=== PATIENT | female | born 1960 | race Caucasian/White ===

== ENCOUNTER 2017-03-05 13:24 | Emergency (ER) | payer OTHER ==
[~2017-03-05] VITALS: Ht 160 cm; Wt 114.0 kg
[~2017-03-05 13:24] MED LIST: ADVAI100I PO; ALBU8I INH; DIAB1.25 PO; GLUCTAB PO; LEVO100T4 PO; MAXZ OR; METO10TA PO; METO25 PO; OMEP20TA39 PO; SIMV40TA PO; THEO1CAP6 PO
[2017-03-05 13:31] VITALS: BP 172/92; PULSE 85; RESP 18; TEMP 97.4; O2SAT 98
[2017-03-05] MEDS ORDERED: THEO300T30 PO (13:48)
[2017-03-05] MEDS ORDERED: METO25TA3 PO (13:48)
[2017-03-05] MEDS ORDERED: FLUT1SPR5 EACH NARE (13:48)
[2017-03-05] MEDS ORDERED: MECL-62 PO (13:48)
[2017-03-05] MEDS ORDERED: LEVO100T5 PO (13:48)
[2017-03-05] MEDS ORDERED: ZOFR8TAB PO (13:48)
[2017-03-05] MEDS ORDERED: ZYRT10TA PO (13:48)
[2017-03-05] MEDS ORDERED: GLIM2TAB PO (13:48)
[2017-03-05] MEDS ORDERED: DEXI60CA PO (13:48)
[2017-03-05] MEDS ORDERED: METF850T PO (13:48)
[2017-03-05] MEDS ORDERED: BETH25TA2 PO (13:48)
[2017-03-05] MEDS ORDERED: VENTAER INH (13:49)
[2017-03-05] MEDS ORDERED: ADVA250A INH (13:49)
[2017-03-05] MEDS ORDERED: SODIUM CHLORIDE 0.9% FLUSH 10 ML FLUSH IVF PRN (14:15)
[2017-03-05 14:22] VITALS: O2SAT 98
[2017-03-05 14:30] LABS: AUTOMATED NEUTROPHIL # 7.6 TH/MM3 (1.8-7.7); BASOPHIL % 0.4 % (0.0-2.0); EOSINOPHIL # 0.4 TH/MM3 (0-0.4); EOSINOPHIL % 3.6 % (0.0-4.0); HEMATOCRIT 35.2 % (35.0-46.0); LYMPH % 21.8 % (9.0-44.0); LYMPHOCYTE # 2.3 TH/MM3 (1.0-4.8); MEAN CELL VOLUME 90.3 FL (80.0-100.0); MEAN CORPUSCULAR HEMOGLOBIN 29.3 PG (27.0-34.0); MEAN CORPUSCULAR HGB CONC 32.4 % (32.0-36.0); MONO % 3.2 % (0.0-8.0); PLATELET COUNT 228 TH/MM3 (150-450); RED CELL DISTRIBUTION WIDTH 13.9 % (11.6-17.2); WHITE BLOOD COUNT 10.6 TH/MM3 (4.0-11.0)
--- NOTE | 2017-03-05 14:32 | PD ---
HPI . Nausea and shortness of breath Chief Complaint: Respiratory Symptoms Time Seen by Provider: 13:57 Travel History International Travel<30 days: No Contact w/Intl Traveler<30days: No Traveled to known affect area: No History of Present Illness HPI Patient presents complaining with nausea and shortness of breath. She states that it has been getting progressively worse all week. She states that it all started when she was placed on a new GI medication called bethanechol. She states that she consulted with her pharmacist her that she should not be taking this medication with her history of COPD and hypertension. Patient reports that she was placed on the medication because of gastroparesis. She reports that her symptoms are severe. She believes that her symptoms are exacerbated by bethanechol. She reports no relieving factors. PFSH Past Medical History Asthma: Yes Anxiety: Yes Depression: Yes High Cholesterol: Yes COPD: Yes Diabetes: Yes Patient Takes Glucophage: Yes Diminished Hearing: No Gastrointestinal Disorders: Yes (gastroparesis) Immunizations Current: No Thyroid Disease: Yes Menopausal: Yes Ectopic : Yes Tubal Ligation: Yes Past Surgical History Abdominal Surgery: Yes (HERNIA ) Social History Alcohol Use: No Tobacco Use: No Substance Use: No Allergies-Medications (Allergen,Severity, Reaction): Coded Allergies: Aspirin (Verified Allergy, Severe, 06/24/14) Erythromycins (Verified Allergy, Severe, 06/24/14) Lactose (Verified Allergy, Severe, 06/24/14) Phenobarbital (Verified Allergy, Severe, 06/24/14) Seafood (Verified Allergy, Severe, 06/24/14) Reported Meds & Prescriptions Reported Meds & Active Scripts Active Reported Ventolin Hfa 18 GM Inh (Albuterol Sulfate) 90 Mcg/Act Aer 2 Puff INH Q4H PRN Advair Diskus Inh (Fluticasone-Salmeterol Inh) 250-50 Mcg/Blist Aer 1 Puff INH BID Rinse mouth after use. Zyrtec Allergy (Cetirizine HCl) 10 Mg Tab 10 Mg PO DAILY Metoprolol Tartrate 25 Mg Tab 25 Mg PO DAILY Glimepiride 2 Mg Tab 2 Mg PO DAILY Take with breakfast or first main meal Zofran (Ondansetron HCl) 8 Mg Tab 8 Mg PO TID PRN Bethanechol 25 Mg Tab 12.5 Mg PO QID Levothyroxine (Levothyroxine Sodium) 100 Mcg Tab 100 Mcg PO DAILY Meclizine (Meclizine HCl) 25 Mg Tab 25 Mg PO DIRECTED PRN Theophylline ER 12 HR (Theophylline) 300 Mg Tab 300 Mg PO Q12H Dexilant (Dexlansoprazole) 60 Mg Cap 60 Mg PO DAILY Metformin (Metformin HCl) 850 Mg Tab 850 Mg PO BIDPC With meals Flonase Nasal [place] (Fluticasone Nasal [place]) 50 Mcg/Act [place] 100 Mcg EACH NARE BID Review of Systems Except as stated in HPI: all other systems reviewed are Neg General / Constitutional: No: Fever, Chills Eyes: No: Blurred Vision HENT: No: Headaches Cardiovascular: No: Chest Pain or Discomfort Respiratory: Positive: Shortness of Breath Gastrointestinal: Positive: Nausea, Abdominal Pain, No: Vomiting, Diarrhea Physical Exam Narrative GENERAL: Awake and alert and in no acute distress. SKIN: Warm and dry. HEAD: Atraumatic. Normocephalic. EYES: Pupils equal and round. Extraocular movements are intact. ENT: No nasal bleeding or discharge. Mucous membranes pink and moist. NECK: Trachea midline. Neck is supple. CARDIOVASCULAR: Regular rate and rhythm. Heart sounds are normal. RESPIRATORY: No accessory muscle use. Lungs are clear with full air movement throughout. GASTROINTESTINAL: Abdomen soft. Generalized tenderness. Nondistended. Normal bowel sounds. MUSCULOSKELETAL: No obvious deformities. No edema. NEUROLOGICAL: Awake and alert. No obvious cranial nerve deficits. Motor grossly within normal limits. Normal speech. PSYCHIATRIC: Flat affect; insight and judgment normal. Data Data Last Documented VS Vital Signs Date Time Temp Pulse Resp B/P Pulse Ox O2 Delivery O2 Flow Rate FiO2 03/05/17 14:31 98 Room Air 03/05/17 13:31 97.4 85 18 172/92 Orders Complete Blood Count With Diff (03/05/17 14:08) Basic Metabolic Panel (Bmp) (03/05/17 14:08) Iv Access Insert/Monitor (03/05/17 14:08) Ecg Monitoring (03/05/17 14:08) Oximetry (03/05/17 14:08) Oxygen Administration (03/05/17 14:08) Chest, Single Ap (03/05/17 14:08) Sodium Chloride 0.9% Flush (Ns Flush) (03/05/17 14:15) Labs Laboratory Tests Test 03/05/17 14:14 White Blood Count 10.6 TH/MM3 Red Blood Count 3.90 MIL/MM3 Hemoglobin 11.4 GM/DL Hematocrit 35.2 % Mean Corpuscular Volume 90.3 FL Mean Corpuscular Hemoglobin 29.3 PG Mean Corpuscular Hemoglobin 32.4 % Concent Red Cell Distribution Width 13.9 % Platelet Count 228 TH/MM3 Mean Platelet Volume 8.2 FL Neutrophils (%) (Auto) 71.0 % Lymphocytes (%) (Auto) 21.8 % Monocytes (%) (Auto) 3.2 % Eosinophils (%) (Auto) 3.6 % Basophils (%) (Auto) 0.4 % Neutrophils # (Auto) 7.6 TH/MM3 Lymphocytes # (Auto) 2.3 TH/MM3 Monocytes # (Auto) 0.3 TH/MM3 Eosinophils # (Auto) 0.4 TH/MM3 Basophils # (Auto) 0.0 TH/MM3 CBC Comment DIFF FINAL Differential Comment Sodium Level 141 MEQ/L Potassium Level 4.6 MEQ/L Chloride Level 110 MEQ/L Carbon Dioxide Level 21.2 MEQ/L Anion Gap 10 MEQ/L Blood Urea Nitrogen 15 MG/DL Creatinine 1.40 MG/DL Estimat Glomerular Filtration 39 ML/MIN Rate Random Glucose 147 MG/DL Calcium Level 8.2 MG/DL [facility] Medical Decision Making Medical Screen Exam Complete: Yes Emergency Medical Condition: Yes Medical Record Reviewed: Yes (her medical problems include DTs, obesity, hypertension, hyperlipidemia, thalassemia, COPD, schizoaffective disorder, personality disorder) Differential Diagnosis Differential diagnosis includes but is not limited to viral gastroenteritis, food poisoning, bowel obstruction, UTI Narrative Course Patient presents stating that she is nauseous and short of breath and being placed on bethanechol. The patient is able to speak in complete sentences without any apparent respiratory distress. Her lungs are clear. Her oxygen saturation is 98% on room air. Her respiratory rate is 18. CBC & BMP Diagram 03/05/17 14:14 Last Impressions Chest X-Ray 03/05/17 1408 Signed Impressions: Service Date/Time: Wednesday, March 05, 2017 14:12 - CONCLUSION: 1. Limited exam because of the patient's large body habitus. 2. Underaerated without overt consolidation or congestive failure. David Seo MD FACR Diagnosis Primary Impression: Dyspnea Qualified Code: R06.00 - Dyspnea, unspecified type Additional Impression: Nausea Additional Instructions: Stop bethanechol. Check with your GI doctor regarding and alternate treatment. Disposition: 01 DISCHARGE HOME Condition: Stable Enma Chong MD Mar 05, 2017 14:32
[2017-03-05 14:47] LABS: POTASSIUM 4.6 MEQ/L (3.5-5.1)
[2017-03-05 14:51] LABS: BICARBONATE 21.2 MEQ/L (21.0-32.0)
--- NOTE | 2017-03-05 14:58 | RADHPO ---
EXAM DATE/TIME: 03/05/2017 14:12 [facility] COMPARISON: No previous studies available for comparison. INDICATIONS : Short of breath. MEDICAL HISTORY : Hypercholesterolemia. Gastroparesis. Chronic obstructive pulmonary disease. Thyroid disease. Asth ma. Wheezing. Diabetes SURGICAL HISTORY : Tubal ligation. Hernia repair. ENCOUNTER: Initial ACUITY: 3 days PAIN SCORE: 0/10 LOCATION: Chest FINDINGS: Lungs are underaerated. Pulmonary vascularity is normal. Minimal parenchymal changes are present in the left base. Degenerative change is seen about both shoulders. CONCLUSION: 1. Limited exam because of the patient's large body habitus. 2. Underaerated without overt consolidation or congestive failure. David Seo MD FACR on March 05, 2017 at 14:55 Board Certified Radiologist. This report was verified electronically.
[2017-03-05 15:00] LABS: HEMO FLAGS DIFF FINAL
[2017-03-05 16:16] VITALS: BP 168/88
== END 2017-03-05 16:19 | disposition home or self-care (01) ==
LOC: PHED 13:24
DX: R06.00 Dyspnea, unspecified (principal); R11.0 Nausea; J44.9 Chronic obstructive pulmonary disease, unspecified; I10 Essential (primary) hypertension; K31.84 Gastroparesis; J45.909 Unspecified asthma, uncomplicated; E78.00 Pure hypercholesterolemia, unspecified; E11.9 Type 2 diabetes mellitus without complications; E07.9 Disorder of thyroid, unspecified
CPT/HCPCS: 71010; 80048; 85025; 99285

== ENCOUNTER 2017-09-28 09:41 | Emergency (ER) | payer OTHER ==
[~2017-09-28 09:41] MED LIST changes: +ADVA250A INH; -ADVAI100I PO; -ALBU8I INH; +BETH25TA2 PO; +DEXI60CA PO; -DIAB1.25 PO; +FLUT1SPR5 EACH NARE; +GLIM2TAB PO; -GLUCTAB PO; -LEVO100T4 PO; +LEVO100T5 PO; -MAXZ OR; +MECL-62 PO; +METF850T PO; -METO10TA PO; -METO25 PO; +METO25TA3 PO; -OMEP20TA39 PO; -SIMV40TA PO; -THEO1CAP6 PO; +THEO300T12 PO; +VENTAER INH; +ZOFR8TAB PO; +ZYRT10TA PO
[2017-09-28 09:45] VITALS: BP 187/84; PULSE 79; RESP 15; TEMP 97.9; O2SAT 98
[2017-09-28] MEDS ORDERED: SODIUM CHLOR 0.9% 1000 ML INJ 1,000 ML IV SCH (09:59)
[2017-09-28] MEDS ORDERED: ONDANSETRON HCL 4 MG/2 ML VIAL IVP ONE (10:00)
[2017-09-28] MEDS ORDERED: MORPHINE SULFATE 4 MG/ML INJ IV PUSH ONE (10:00)
[2017-09-28] MEDS ORDERED: SODIUM CHLORIDE 0.9% FLUSH 10 ML FLUSH IV FLUSH PRN (10:00)
--- NOTE | 2017-09-28 10:06 | PD ---
HPI Chief Complaint: GI Complaint Time Seen by Provider: 09:52 Travel History International Travel<30 days: No Contact w/Intl Traveler<30days: No Traveled to known affect area: No History of Present Illness HPI 56yo F with hernia repair 08/28/17, gastroparesis presents to the ED with c/o abdominal pain, vomiting and nonbloody diarrhea today. Said pain is mainly epigastric, sharp, nonradiating and intermittent. Denies any fever, chest pain , sob, focal weakness or numbness. Also complains of increased urinary frequency. PFSH Past Medical History Asthma: Yes Anxiety: Yes Depression: Yes High Cholesterol: Yes COPD: Yes Diabetes: Yes Diminished Hearing: No Gastrointestinal Disorders: Yes (gastroparesis) Immunizations Current: No Thyroid Disease: Yes Menopausal: Yes Ectopic : Yes Tubal Ligation: Yes Past Surgical History Abdominal Surgery: Yes (HERNIA ) Social History Alcohol Use: No Tobacco Use: No Substance Use: No Allergies-Medications (Allergen,Severity, Reaction): Coded Allergies: Fish Containing Products (Unverified Allergy, Severe, 09/28/17) aspirin (Unverified Allergy, Severe, 09/28/17) azithromycin (Unverified Allergy, Severe, 09/28/17) erythromycin base (Unverified Allergy, Severe, 09/28/17) lactose (Unverified Allergy, Severe, 09/28/17) phenobarbital (Unverified Allergy, Severe, 09/28/17) Reported Meds & Prescriptions Reported Meds & Active Scripts Active Tylenol (Acetaminophen) 325 Mg Tab 650 Mg PO Q6H PRN Reported Iron (Ferrous Sulfate) 325 Mg Cap 325 Mg PO DAILY Caltrate 600+D Chew (Calcium Carbonate-Vitamin D Chew) 600-400 Mg-Unit Chew 1 Tab PO BID Vitamin D-1000 (Cholecalciferol) 1,000 Unit Tab 1,000 Units PO BID Imodium A-D (Loperamide HCl) 2 Mg Capsule 2 Mg PO Q6H PRN Clonazepam 1 Mg Tab 1 Mg PO TID Fluoxetine (Fluoxetine HCl) 20 Mg Capsule 20 Mg PO DAILY Topiramate 50 Mg Tab 50 Mg PO BID Quetiapine (Quetiapine Fumarate) 100 Mg Tab 100 Mg PO HS Simvastatin 40 Mg Tab 40 Mg PO HS Reglan (Metoclopramide HCl) 5 Mg Tab 5 Mg PO BID Fenofibrate 160 Mg Tab 160 Mg PO DAILY Omeprazole 20 Mg Tab 20 Mg PO DAILY Ventolin Hfa 18 GM Inh (Albuterol Sulfate) 90 Mcg/Act Aer 2 Puff INH Q4H PRN Advair Diskus Inh (Fluticasone-Salmeterol Inh) 250-50 Mcg/Blist Aer 1 Puff INH BID Rinse mouth after use. Zyrtec Allergy (Cetirizine HCl) 10 Mg Tab 10 Mg PO DAILY Metoprolol Tartrate 25 Mg Tab 25 Mg PO DAILY Glimepiride 2 Mg Tab 2 Mg PO DAILY Take with breakfast or first main meal Zofran (Ondansetron HCl) 8 Mg Tab 8 Mg PO TID PRN Levothyroxine (Levothyroxine Sodium) 100 Mcg Tab 100 Mcg PO DAILY Meclizine (Meclizine HCl) 25 Mg Tab 25 Mg PO DIRECTED PRN Theophylline ER 12 HR (Theophylline) 300 Mg Tab 300 Mg PO Q12H Metformin (Metformin HCl) 850 Mg Tab 850 Mg PO BIDPC With meals Review of Systems Except as stated in HPI: all other systems reviewed are Neg Physical Exam Narrative GENERAL: 56yo F not in distress. SKIN: Focused skin assessment warm/dry. HEAD: Atraumatic. Normocephalic. EYES: Pupils equal and round. No scleral icterus. No injection or drainage. ENT: No nasal bleeding or discharge. Mucous membranes pink and moist. NECK: Trachea midline. No JVD. CARDIOVASCULAR: Regular rate and rhythm. No murmur appreciated. RESPIRATORY: No accessory muscle use. Clear to auscultation. Breath sounds equal bilaterally. GASTROINTESTINAL: Abdomen soft, +TTP epigastric, RUQ, periumbilical left of umbilicus. Morbidly obese abdomen. Midline incision site looks well healed with no erythema, purulent discharge or edema. Tender to palpation around the incision. There is some erythema under the pannis. MUSCULOSKELETAL: No obvious deformities. No clubbing. No cyanosis. No edema. NEUROLOGICAL: Awake and alert. No obvious cranial nerve deficits. Motor grossly within normal limits. Normal speech. PSYCHIATRIC: Appropriate mood and affect; insight and judgment normal. Data Data Last Documented VS Vital Signs Date Time Temp Pulse Resp B/P (MAP) Pulse Ox O2 Delivery O2 Flow Rate FiO2 09/28/17 13:51 09/28/17 12:30 77 18 97 09/28/17 10:10 Room Air 09/28/17 09:45 97.9 Orders Orders Complete Blood Count With Diff (09/28/17 09:59) Comprehensive Metabolic Panel (09/28/17 09:59) Lipase (09/28/17 09:59) Prothrombin Time / Inr (Pt) (09/28/17 09:59) Act Partial Throm Time (Ptt) (09/28/17 09:59) Urinalysis - C+S If Indicated (09/28/17 09:59) Ct Abd/Pel W Iv Contrast(Rout) (09/28/17 09:59) Iv Access Insert/Monitor (09/28/17 09:59) Ecg Monitoring (09/28/17 09:59) Oximetry (09/28/17 09:59) Ondansetron Inj (Zofran Inj) (09/28/17 10:00) Sodium Chlor 0.9% 1000 Ml Inj (Ns 1000 M (09/28/17 09:59) Sodium Chloride 0.9% Flush (Ns Flush) (09/28/17 10:00) Troponin I (09/28/17 09:59) Electrocardiogram (09/28/17 ) Morphine Inj (Morphine Inj) (09/28/17 10:45) Iohexol 350 Inj (Omnipaque 350 Inj) (09/28/17 11:09) Morphine Inj (Morphine Inj) (09/28/17 12:00) Ed Discharge Order (09/28/17 13:18) Labs Laboratory Tests Test 09/28/17 10:15 09/28/17 11:25 White Blood Count 10.5 TH/MM3 Red Blood Count 3.86 MIL/MM3 Hemoglobin 11.3 GM/DL Hematocrit 34.3 % Mean Corpuscular Volume 88.9 FL Mean Corpuscular Hemoglobin 29.4 PG Mean Corpuscular Hemoglobin Concent 33.0 % Red Cell Distribution Width 14.6 % Platelet Count 268 TH/MM3 Mean Platelet Volume 8.2 FL Neutrophils (%) (Auto) 66.9 % Lymphocytes (%) (Auto) 23.3 % Monocytes (%) (Auto) 5.9 % Eosinophils (%) (Auto) 3.1 % Basophils (%) (Auto) 0.8 % Neutrophils # (Auto) 7.0 TH/MM3 Lymphocytes # (Auto) 2.5 TH/MM3 Monocytes # (Auto) 0.6 TH/MM3 Eosinophils # (Auto) 0.3 TH/MM3 Basophils # (Auto) 0.1 TH/MM3 CBC Comment DIFF FINAL Differential Comment Prothrombin Time 10.6 SEC Prothromb Time International Ratio 1.0 RATIO Activated Partial Thromboplast Time 25.2 SEC Blood Urea Nitrogen 19 MG/DL Creatinine 1.20 MG/DL Random Glucose 136 MG/DL Total Protein 7.3 GM/DL Albumin 3.6 GM/DL Calcium Level 8.8 MG/DL Alkaline Phosphatase 99 U/L Aspartate Amino Transf (AST/SGOT) 19 U/L Alanine Aminotransferase (ALT/SGPT) 18 U/L Total Bilirubin 0.2 MG/DL Sodium Level 140 MEQ/L Potassium Level 4.3 MEQ/L Chloride Level 105 MEQ/L Carbon Dioxide Level 19.6 MEQ/L Anion Gap 15 MEQ/L Estimat Glomerular Filtration Rate 46 ML/MIN Troponin I LESS THAN 0.02 NG/ML Lipase 248 U/L Urine Collection Type CLEAN CATCH Urine Color YELLOW Urine Turbidity CLEAR Urine pH 5.5 Urine Specific [place] 1.010 Urine Protein NEG mg/dL Urine Glucose (UA) NEG mg/dL Urine Ketones NEG mg/dL Urine Occult Blood NEG Urine Nitrite NEG Urine Bilirubin NEG Urine Leukocyte Esterase NEG Urine WBC 0-2 /hpf Urine Squamous Epithelial Cells 0-5 /hpf Microscopic Urinalysis Comment CULT NOT INDICATED Urine Collection Time 11:25 [facility] Medical Decision Making Medical Screen Exam Complete: Yes Emergency Medical Condition: Yes Interpretation(s) EKG: NSR 58bpm. Q waves III, aVF. No ST segment elevation or depression. Differential Diagnosis Gastroenteritis vs. gastroparesis vs. partial obstruction vs. abscess vs. UTI vs. pancreatitis Narrative Course 56yo F with epigastric abdominal pain, vomiting, diarrhea. Pt is well appearing. Labs reviewed, no leukocytosis. H/H low at 11.3/34.3 but this is her baseline. Troponin negative. LFTs negative. Lipase normal. UA negative. CT a/p showed nonobstructing 2.5cm stone in extrarenal pelvis on left side. Small umbilical hernia which contains a partial loop of colon. Nonspecific abdominal bowel gas pattern with some minimally prominent loops of small bowel in central left lower region. Recommend follow up KUBs. Lower abdominal wall panniculitis. Pt's surgeon is Dr. Newton and her doctor does not come to [place]. Pt given morphine and zofran which improved her nausea but she is still with pain. Will give another dose of morphine. Pt reevaluated at bedside and pain has improved. Pt has not vomited here and no longer nauseous. Had bowel movement prior to arrival today and is passing gas. Pt is nontoxic appearing. I discussed with Dr. Newton who knows her well and he recommended her to call his office and he will get her right in to follow up with him. I discussed plan with patient and she agrees and will call his office today to follow up with him. Strict return precautions given. Diagnosis Primary Impression: Abdominal pain Qualified Codes: R10.84 - Generalized abdominal pain Patient Instructions: General Instructions Departure Forms: Tests/Procedures Additional Instructions: I discussed with Dr. Newton and he said for you to call his office as soon as possible and they will schedule you to see him. Please follow up with Dr. Newton today or tomorrow. Return to the ED if symptoms worsen. Med/Other Pt SpecificInfo: Prescription(s) given Scripts Acetaminophen (Tylenol) 325 Mg Tab 650 MG PO Q6H Y for PAIN SCALE 1 TO 4, #20 TAB 0 Refills Prov: Liza Kidd DO 09/28/17 Disposition: 01 DISCHARGE HOME Condition: Stable Liza Kidd DO Sep 28, 2017 10:06
[2017-09-28 10:10] VITALS: O2SAT 98
[2017-09-28 10:23] LABS: BASOPHIL # 0.1 TH/MM3 (0-0.2); BASOPHIL % 0.8 % (0.0-2.0); EOSINOPHIL # 0.3 TH/MM3 (0-0.4); EOSINOPHIL % 3.1 % (0.0-4.0); HEMATOCRIT 34.3 % (35.0-46.0); HEMO FLAGS DIFF FINAL; LYMPH % 23.3 % (9.0-44.0); LYMPHOCYTE # 2.5 TH/MM3 (1.0-4.8); MEAN CELL VOLUME 88.9 FL (80.0-100.0); MEAN CORPUSCULAR HEMOGLOBIN 29.4 PG (27.0-34.0); MONO % 5.9 % (0.0-8.0); NEUT % 66.9 % (16.0-70.0); PLATELET COUNT 268 TH/MM3 (150-450); RED BLOOD COUNT 3.86 MIL/MM3 (4.00-5.30); RED CELL DISTRIBUTION WIDTH 14.6 % (11.6-17.2); WHITE BLOOD COUNT 10.5 TH/MM3 (4.0-11.0)
[2017-09-28 10:27] LABS: BLOOD UREA NITROGEN 19 MG/DL (7-18); GLOMERULAR FILTRATION RATE 46 ML/MIN (>89)
[2017-09-28 10:28] LABS: CHLORIDE 105 MEQ/L (98-107); POTASSIUM 4.3 MEQ/L (3.5-5.1); SODIUM (NA) 140 MEQ/L (136-145)
[2017-09-28] MEDS ORDERED: FLUO20CA12 PO (10:30)
[2017-09-28] MEDS ORDERED: CLON1TAB PO (10:30)
[2017-09-28] MEDS ORDERED: CALTCHW5 PO (10:30)
[2017-09-28] MEDS ORDERED: VITA1000 PO (10:30)
[2017-09-28] MEDS ORDERED: QUET1TAB8 PO (10:30)
[2017-09-28] MEDS ORDERED: FERR325C PO (10:30)
[2017-09-28] MEDS ORDERED: SIMV40TA PO (10:30)
[2017-09-28] MEDS ORDERED: LOPE-1 PO (10:30)
[2017-09-28] MEDS ORDERED: OMEP20TA93 PO (10:30)
[2017-09-28] MEDS ORDERED: TOPI50TA7 PO (10:30)
[2017-09-28] MEDS ORDERED: REGL5TAB PO (10:30)
[2017-09-28] MEDS ORDERED: FENO160T PO (10:30)
[2017-09-28 10:37] LABS: APTT (PATIENT) 25.2 SEC (24.3-30.1); PROTHROMBIN TIME - PATIENT 10.6 SEC (9.8-11.6)
[2017-09-28] MEDS ORDERED: MORPHINE SULFATE 2 MG/ML INJ IV PUSH ONE (10:45)
[2017-09-28] MEDS ORDERED: IOHEXOL 350 MG/ML 10 ML VIAL (for RAD DIAG) IVCONTRAST ONE (11:09)
[2017-09-28 11:25] LABS: ALT (GPT) 18 U/L (10-53); ANION GAP 15 MEQ/L (5-15); AST (GOT) 19 U/L (15-37); BICARBONATE 19.6 MEQ/L (21.0-32.0)
[2017-09-28 11:29] LABS: ALKALINE PHOSPHATASE 99 U/L (45-117); TOTAL BILIRUBIN ADULT 0.2 MG/DL (0.2-1.0)
[2017-09-28 11:30] LABS: BLOOD, URINE NEG (NEG); GLUCOSE,URINE NEG (NEG); KETONE, URINE NEG (NEG); NITRITE,URINE NEG (NEG); PH, URINE 5.5 (5.0-8.5)
--- NOTE | 2017-09-28 11:30 | RADRPT ---
EXAM DATE/TIME: 09/28/2017 10:53 [facility] COMPARISON: No previous studies available for comparison. INDICATIONS : Sharp, epigastric pain. IV CONTRAST: 95 cc Omnipaque 350 (iohexol) IV ORAL CONTRAST: No oral contrast ingested. RADIATION DOSE: 24.93 CTDIvol (mGy) MEDICAL HISTORY : Chronic obstructive pulmonary disease. Gastroparesis. Diabetes. SURGICAL HISTORY : Tubal ligation. Hernia repair. ENCOUNTER: Initial ACUITY: 1 day PAIN SCALE: 5/10 LOCATION: upper quadrant TECHNIQUE: Volumetric scanning of the abdomen and pelvis was performed. Using automated exposure control and ad justment of the mA and/or kV according to patient size, radiation dose was kept as low as reasonably achievable to obtain optimal diagnostic quality images. DICOM format image data is available electro nically for review and comparison. FINDINGS: LOWER LUNGS: The visualized lower lungs are clear. LIVER: Homogeneous density without lesion. There is no dilation of the biliary tree. Cholecystectomy. SPLEEN: Normal size without lesion. PANCREAS: Within normal limits. KIDNEYS: There is a densely calcified stone in the left extrarenal pelvis which measures 2.5 cm in dimension. No significant hydronephrosis on the left side. No additional calcified stones seen in the collecti ng system and no calcified stones along the course of either ureter. ADRENAL GLANDS: Within normal limits. VASCULAR: There is no aortic aneurysm. BOWEL/MESENTERY: Minimal distention of loops of distal small bowel measuring up to 3 cm in dimension. A few air-fluid levels are also seen in the small bowel. ABDOMINAL WALL: There is a defect in the anterior abdominal wall presumably at the umbilicus with a partial loop of c olon extending into the defect. Separation between the rectus muscles measures 2.6 cm. There is als o induration of the subcutaneous fat inferior to the umbilicus measuring in excess of 6 cm suggesting panniculitis. No drainable fluid collections seen. RETROPERITONEUM: There is no lymphadenopathy. BLADDER: No wall thickening or mass. REPRODUCTIVE: Within normal limits. INGUINAL: There is no lymphadenopathy or hernia. MUSCULOSKELETAL: Within normal limits for patient age. CONCLUSION: 1. Nonobstructing 2.5 cm stone in the extrarenal pelvis on left side. 2. Small umbilical hernia which contains a partial loop of colon. There is a nonspecific abdominal b owel gas pattern with some minimally prominent loops of small bowel in the central left lower region. Recommend followup KUBs. 3. Lower abdominal wall panniculitis Abdirizak Stern MD on September 28, 2017 at 11:17 Board Certified Radiologist. This report was verified electronically.
[2017-09-28 11:34] LABS: COMMENT (UR) CULT NOT INDICATED; CULTURE IF INDICATED CULT NOT INDICATED; METHOD OF COLLECTION CLEAN CATCH; SQUAMOUS EPITHELIAL CELL URINE 0-5 /hpf (0-5); URINE COLOR YELLOW (YELLW/STRAW); WBC, URINE 0-2 /hpf (0-5)
[2017-09-28] MEDS ORDERED: MORPHINE SULFATE 8 MG/ML INJ IV PUSH ONE (12:00)
[2017-09-28 12:09] VITALS: BP 163/85; PULSE 75; RESP 16; O2SAT 99
[2017-09-28 12:30] VITALS: BP 176/91; PULSE 77; RESP 18; O2SAT 97
[2017-09-28] MEDS ORDERED: TYLE325T PO (13:18)
--- NOTE | 2017-09-28 18:07 | EKG ---
Date Performed: 09/28/2017 Time Performed: 10:08:52 PTAGE: 56 years EKG: Sinus rhythm LOW QRS VOLTAGE IN PRECORDIAL LEADS POSSIBLE ANTERIOR MYOCARDIAL INFARCTION INFERIOR MYOCARDIAL INFA RCTION ABNORMAL ECG Compared to prior tracing no significant change PREVIOUS TRACING : 01/08/2000 11.19 DOCTOR: Kerline Higgins Interpretating Date/Time 09/28/2017 18:06:23
== END 2017-09-28 13:50 | disposition home or self-care (01) ==
LOC: PHED 09:41
DX: R10.84 Generalized abdominal pain (principal); K42.9 Umbilical hernia without obstruction or gangrene; E11.43 Type 2 diabetes mellitus with diabetic autonomic (poly)neuropathy; K31.84 Gastroparesis; E78.00 Pure hypercholesterolemia, unspecified; J44.9 Chronic obstructive pulmonary disease, unspecified; R94.31 Abnormal electrocardiogram [ECG] [EKG]; Z79.84 Long term (current) use of oral hypoglycemic drugs
CPT/HCPCS: 74177; 80053; 81001; 83690; 84484; 85025; 85610; 85730; 93005; 96361; 96374; 96375; 96376; 99285; J2270; J2405; J7030; Q9967

== ENCOUNTER 2018-01-22 18:31 | Emergency (ER) | payer OTHER ==
[~2018-01-22] VITALS: Ht 157.5 cm; Wt 108.0 kg
[~2018-01-22 18:31] MED LIST changes: -BETH25TA2 PO; +CALTCHW5 PO; +CLON1TAB PO; -DEXI60CA PO; +FENO160T PO; +FERR325C PO; +FLUO20CA12 PO; -FLUT1SPR5 EACH NARE; +LOPE-1 PO; +OMEP20TA93 PO; +QUET1TAB8 PO; +REGL5TAB PO; +SIMV40TA PO; +TOPI50TA7 PO; +TYLE325T PO; +VITA1000 PO
[2018-01-22 18:42] VITALS: BP 233/104; PULSE 83; RESP 16; TEMP 97.5; O2SAT 99
[2018-01-22 20:26] VITALS: BP 188/85; PULSE 73; RESP 20; O2SAT 99
[2018-01-22] MEDS ORDERED: LIDO1LOT TOPICAL (20:38)
[2018-01-22] MEDS ORDERED: HYDR-3516 PO (20:38)
[2018-01-22] MEDS ORDERED: MORPHINE SULFATE 4 MG/ML INJ IV PUSH ONE (20:45)
[2018-01-22] MEDS ORDERED: SODIUM CHLORIDE 0.9% FLUSH 10 ML FLUSH IV FLUSH PRN (20:45)
[2018-01-22] MEDS ORDERED: ONDANSETRON HCL 4 MG/2 ML VIAL IVP ONE (20:45)
[2018-01-22 20:59] LABS: AUTOMATED NEUTROPHIL # 4.7 TH/MM3 (1.8-7.7); BASOPHIL # 0.1 TH/MM3 (0-0.2); BASOPHIL % 1.1 % (0.0-2.0); EOSINOPHIL # 0.4 TH/MM3 (0-0.4); EOSINOPHIL % 4.1 % (0.0-4.0); HEMATOCRIT 33.7 % (35.0-46.0); HEMOGLOBIN 10.9 GM/DL (11.6-15.3); LYMPH % 32.6 % (9.0-44.0); LYMPHOCYTE # 2.8 TH/MM3 (1.0-4.8); MEAN CELL VOLUME 86.9 FL (80.0-100.0); MEAN CORPUSCULAR HEMOGLOBIN 28.1 PG (27.0-34.0); MEAN CORPUSCULAR HGB CONC 32.3 % (32.0-36.0); MONO % 7.3 % (0.0-8.0); MONOCYTE # 0.6 TH/MM3 (0-0.9); NEUT % 54.9 % (16.0-70.0); PLATELET COUNT 286 TH/MM3 (150-450); RED BLOOD COUNT 3.88 MIL/MM3 (4.00-5.30); RED CELL DISTRIBUTION WIDTH 14.6 % (11.6-17.2); WHITE BLOOD COUNT 8.6 TH/MM3 (4.0-11.0)
[2018-01-22 21:11] LABS: BICARBONATE 20.3 MEQ/L (21.0-32.0); CALCIUM 8.9 MG/DL (8.5-10.1)
[2018-01-22 21:15] LABS: CREATININE 1.5 MG/DL (0.50-1.00)
--- NOTE | 2018-01-22 21:23 | PD ---
HPI . Abdominal pain Chief Complaint: GI Complaint Time Seen by Provider: 20:29 Travel History International Travel<30 days: No Contact w/Intl Traveler<30days: No Traveled to known affect area: No History of Present Illness HPI Patient presents for the evaluation of abdominal pain. He reports the onset of abdominal pain in November. She states that it has been worse for the last few days. She reports chronic nausea and states that she takes Zofran "around-the- clock" every day. There is been no emesis. No diarrhea. No fever. No urinary tract symptoms. She describes the pain as a "knife" and she rates it 10 /10. PFSH Past Medical History Asthma: Yes Anxiety: Yes Depression: Yes High Cholesterol: Yes COPD: Yes Diabetes: Yes Patient Takes Glucophage: Yes (01-22-18) Diminished Hearing: Yes ([place]) Gastrointestinal Disorders: Yes (gastroparesis) Immunizations Current: Yes Renal Failure: Yes Thyroid Disease: Yes Tetanus Vaccination: > 5 Years Influenza Vaccination: Yes Menopausal: Yes Ectopic : Yes Tubal Ligation: Yes Past Surgical History Abdominal Surgery: Yes (ventral hernia x4) Social History Alcohol Use: No Tobacco Use: No Substance Use: No Allergies-Medications (Allergen,Severity, Reaction): Coded Allergies: Fish Containing Products (Unverified Allergy, Severe, 01/22/18) aspirin (Unverified Allergy, Severe, 01/22/18) azithromycin (Unverified Allergy, Severe, 01/22/18) erythromycin base (Unverified Allergy, Severe, 01/22/18) lactose (Unverified Allergy, Severe, 01/22/18) phenobarbital (Unverified Allergy, Severe, 01/22/18) Reported Meds & Prescriptions Reported Meds & Active Scripts Active Reported Lidocaine Topical (Lidocaine HCl) 3 % Lotn 1 Applic TOPICAL HS PRN Hydrocodone-Acetaminophen 5-325 mg Tab 1 Tab PO Q4H PRN Imodium A-D (Loperamide HCl) 2 Mg Capsule 2 Mg PO Q6H PRN Clonazepam 1 Mg Tab 1 Mg PO QID Fluoxetine (Fluoxetine HCl) 20 Mg Capsule 20 Mg PO DAILY Topiramate 50 Mg Tab 50 Mg PO BID Quetiapine (Quetiapine Fumarate) 100 Mg Tab 100 Mg PO HS Reglan (Metoclopramide HCl) 5 Mg Tab 10 Mg PO TID Omeprazole 20 Mg Tab 20 Mg PO DAILY Ventolin Hfa 18 GM Inh (Albuterol Sulfate) 90 Mcg/Act Aer 2 Puff INH Q4H PRN Advair Diskus Inh (Fluticasone-Salmeterol Inh) 250-50 Mcg/Blist Aer 1 Puff INH BID Rinse mouth after use. Metoprolol Tartrate 25 Mg Tab 50 Mg PO DAILY Glimepiride 2 Mg Tab 2 Mg PO BID Take with breakfast or first main meal Zofran (Ondansetron HCl) 8 Mg Tab 8 Mg PO TID PRN Levothyroxine (Levothyroxine Sodium) 100 Mcg Tab 112 Mcg PO DAILY Meclizine (Meclizine HCl) 25 Mg Tab 25 Mg PO DIRECTED PRN Theophylline ER 12 HR (Theophylline) 300 Mg Tab 300 Mg PO Q12H Metformin (Metformin HCl) 850 Mg Tab 850 Mg PO BIDPC With meals Review of Systems Except as stated in HPI: all other systems reviewed are Neg General / Constitutional: No: Fever, Chills Gastrointestinal: Positive: Nausea, Abdominal Pain, No: Vomiting, Diarrhea Genitourinary: No: Urgency, Frequency, Dysuria Physical Exam Narrative GENERAL: Obese woman who is in no acute distress. SKIN: warm/dry. HEAD: Normocephalic. Atraumatic. EYES: Pupils equal and round. No scleral icterus. No injection or drainage. ENT: No nasal bleeding or discharge. Mucous membranes pink and moist. NECK: Trachea midline. Full range of motion without pain.. CARDIOVASCULAR: Regular rate and rhythm. Heart sounds normal. RESPIRATORY: No accessory muscle use. Clear to auscultation. Breath sounds equal bilaterally. GASTROINTESTINAL: Well-healed vertical surgical scar. No obvious hernia palpated. Abdomen soft. Tender around her scar. Bowel sounds present. Nondistended. MUSCULOSKELETAL: No obvious deformities. NEUROLOGICAL: Awake and alert. No obvious cranial nerve deficits. Motor grossly within normal limits. Normal speech. PSYCHIATRIC: Appropriate mood and affect; insight and judgment normal. Data Data Last Documented VS Vital Signs Date Time Temp Pulse Resp B/P (MAP) Pulse Ox O2 Delivery O2 Flow Rate FiO2 01/22/18 20:26 73 20 188/85 (119) 99 Room Air 01/22/18 18:42 97.5 Orders Orders Basic Metabolic Panel (Bmp) (01/22/18 20:34) Complete Blood Count With Diff (01/22/18 20:34) Urinalysis - C+S If Indicated (01/22/18 20:34) Ct Abd/Pel W Iv Contrast(Rout) (01/22/18 20:34) Iv Access Insert/Monitor (01/22/18 20:34) Morphine Inj (Morphine Inj) (01/22/18 20:45) Ondansetron Inj (Zofran Inj) (01/22/18 20:45) Sodium Chloride 0.9% Flush (Ns Flush) (01/22/18 20:45) Iodixanol 320 Inj (Rad Ct) (Visipaque 32 (01/22/18 21:59) Labs Laboratory Tests Test 01/22/18 20:20 01/22/18 21:35 White Blood Count 8.6 TH/MM3 Red Blood Count 3.88 MIL/MM3 Hemoglobin 10.9 GM/DL Hematocrit 33.7 % Mean Corpuscular Volume 86.9 FL Mean Corpuscular Hemoglobin 28.1 PG Mean Corpuscular Hemoglobin Concent 32.3 % Red Cell Distribution Width 14.6 % Platelet Count 286 TH/MM3 Mean Platelet Volume 8.0 FL Neutrophils (%) (Auto) 54.9 % Lymphocytes (%) (Auto) 32.6 % Monocytes (%) (Auto) 7.3 % Eosinophils (%) (Auto) 4.1 % Basophils (%) (Auto) 1.1 % Neutrophils # (Auto) 4.7 TH/MM3 Lymphocytes # (Auto) 2.8 TH/MM3 Monocytes # (Auto) 0.6 TH/MM3 Eosinophils # (Auto) 0.4 TH/MM3 Basophils # (Auto) 0.1 TH/MM3 CBC Comment DIFF FINAL Differential Comment Blood Urea Nitrogen 25 MG/DL Creatinine 1.50 MG/DL Random Glucose 77 MG/DL Calcium Level 8.9 MG/DL Sodium Level 139 MEQ/L Potassium Level 4.1 MEQ/L Chloride Level 109 MEQ/L Carbon Dioxide Level 20.3 MEQ/L Anion Gap 10 MEQ/L Estimat Glomerular Filtration Rate 36 ML/MIN Urine Color YELLOW Urine Turbidity CLEAR Urine pH 6.0 Urine Specific [place] 1.009 Urine Protein NEG mg/dL Urine Glucose (UA) NEG mg/dL Urine Ketones NEG mg/dL Urine Occult Blood NEG Urine Nitrite NEG Urine Bilirubin NEG Urine Leukocyte Esterase NEG Urine WBC 0-2 /hpf Urine Squamous Epithelial Cells 0-5 /hpf Microscopic Urinalysis Comment CULT NOT INDICATED MDM Medical Decision Making Medical Screen Exam Complete: Yes Emergency Medical Condition: Yes Differential Diagnosis Differential diagnosis of abdominal pain includes but is not limited to gastritis, pancreatitis, hepatitis, gastroenteritis, gallbladder disease, constipation, urinary retention, UTI, peptic ulcer disease, diverticulitis or appendicitis Narrative Course This patient presents for the evaluation of abdominal pain which has been ongoing for at least a month. She states this been worse for the last 2 days. Routine labs and a CT have been ordered. CBC & BMP Diagram 01/22/18 20:20 Calcium Level 8.[address]: 1. No acute finding is identified to explain the clinical symptoms. There are no findings to indicate bowel obstruction. 2. Stable 18 mm nonobstructing stone in the left extrarenal pelvis. 3. Nonacute findings include mild atherosclerotic disease and mild hepatosplenomegaly. No etiology for her abdominal pain was found. The history, exam, diagnostic testing, and current condition do not suggest any significant pathology to warrant further testing, continued ED treatment, admission, or surgical evaluation at this point. No EMC was found. The patient 's condition is stable and appropriate for discharge. Diagnosis Primary Impression: Abdominal pain Qualified Codes: R10.33 - Periumbilical pain Patient Instructions: Abdominal Pain (ED), General Instructions Additional Instructions: Follow-up with your doctor or surgeon for continued evaluation of your abdominal pain. Disposition: 01 DISCHARGE HOME Condition: Stable Enma Chong MD Jan 22, 2018 21:22
[2018-01-22] MEDS ORDERED: IODIXANOL 320 MG/ML 10 ML VIAL (for Rad CT) IVCONTRAST ONE (21:59)
[2018-01-22 22:07] LABS: BILIRUBIN, URINE NEG (NEG); BLOOD, URINE NEG (NEG); GLUCOSE,URINE NEG (NEG); KETONE, URINE NEG (NEG); NITRITE,URINE NEG (NEG); URINE LEUKOCYTE ESTERASE NEG (NEG)
[2018-01-22 22:17] LABS: URINE COLOR YELLOW (YELLW/STRAW)
[2018-01-22 22:18] LABS: SQUAMOUS EPITHELIAL CELL URINE 0-5 /hpf (0-5); WBC, URINE 0-2 /hpf (0-5)
--- NOTE | 2018-01-22 22:28 | RADRPT ---
EXAM DATE/TIME: 01/22/2018 21:51 [facility] COMPARISON: CT ABDOMEN & PELVIS W CONTRAST, September 28, 2017, 10:53. INDICATIONS : Diffuse abdominal pain with vomiting. IV CONTRAST: 50 cc Visipaque (iodixanol) IV ORAL CONTRAST: No oral contrast ingested. RADIATION DOSE: 22.27 CTDIvol (mGy) MEDICAL HISTORY : Gastroparesis. Chronic obstructive pulmonary disease. Diabetes. Ventral hernia. Renal disease. SURGICAL HISTORY : Ventral hernia repair. ENCOUNTER: Initial ACUITY: 3 days PAIN SCALE: 5/10 LOCATION: Abdomen. TECHNIQUE: Volumetric scanning of the abdomen and pelvis was performed. Using automated exposure control and ad justment of the mA and/or kV according to patient size, radiation dose was kept as low as reasonably achievable to obtain optimal diagnostic quality images. DICOM format image data is available electro nically for review and comparison. FINDINGS: LOWER LUNGS: Lower lungs demonstrate no acute finding. LIVER: Liver is enlarged measuring 19.1 cm in length. No focal lesion is seen. There is no dilation of the biliary tree. Gallbladder is absent. SPLEEN: Enlarged measuring 13.2 cm. PANCREAS: Within normal limits. KIDNEYS: Normal in size and shape. There is no mass or hydronephrosis. There is a stable stone in the left ex trarenal pelvis measuring 18 x 11 mm. There is no associated inflammatory change or urothelial thicke liz appreciated. ADRENAL GLANDS: Within normal limits. VASCULAR: There is no aortic aneurysm. There is mild atherosclerotic disease. BOWEL/MESENTERY: The stomach, small bowel, and colon demonstrate no acute abnormality. There is no free intraperitone al air or fluid. ABDOMINAL WALL: There is anterior, wall mesh in the area of prior hernia. There is low density, likely fluid adjacent to the mesh. RETROPERITONEUM: There is no lymphadenopathy. BLADDER: No wall thickening or mass. REPRODUCTIVE: Within normal limits. INGUINAL: There is no lymphadenopathy or hernia. MUSCULOSKELETAL: There is degenerative changes of the lumbar spine. CONCLUSION: 1. No acute finding is identified to explain the clinical symptoms. There are no findings to indicate bowel obstruction. 2. Stable 18 mm nonobstructing stone in the left extrarenal pelvis. 3. Nonacute findings include mild atherosclerotic disease and mild hepatosplenomegaly. Les French MD on January 22, 2018 at 22:22 Board Certified Radiologist. This report was verified electronically.
[2018-01-22 23:00] VITALS: BP 165/75
== END 2018-01-22 23:24 | disposition home or self-care (01) ==
LOC: PHED 18:31
DX: R10.33 Periumbilical pain (principal); N28.9 Disorder of kidney and ureter, unspecified; E78.00 Pure hypercholesterolemia, unspecified; J44.9 Chronic obstructive pulmonary disease, unspecified; E11.43 Type 2 diabetes mellitus with diabetic autonomic (poly)neuropathy; F32.9 Major depressive disorder, single episode, unspecified; Z88.1 Allergy status to other antibiotic agents; Z88.8 Allergy status to other drugs, medicaments and biological substances; Z79.84 Long term (current) use of oral hypoglycemic drugs; Z79.899 Other long term (current) drug therapy
CPT/HCPCS: 74177; 80048; 81001; 85025; 96374; 96375; 99284; J2270; J2405; Q9967